=== PATIENT | female | born 1960 | race Caucasian/White ===

== ENCOUNTER 2024-08-15 15:36 | Emergency (ER) | payer MEDICARE, SELFPAY ==
[2024-08-15] VITALS (7 sets, daily range): BP systolic 135–194; BP diastolic 67–104; BMI 28.9
[2024-08-15 16:21] LABS: % Basophils 0.7 % (0-2); % Eosinophils 3.5 % (0-6); % Immature Granulocytes 0.2 % (0-0.5); % Lymphocytes 19.7 % (20.5-51.1); % Monocytes 9.8 % (1.7-9.3); % Neutrophils 66.1 % (42.2-75.2); Absolute Eosinophils 0.2 10^3/uL (0-0.7); Absolute Lymphocytes 0.8 10^3/uL (1.2-3.4); Absolute Monocytes 0.4 10^3/uL (0.1-0.6); Absolute Neutrophils 2.8 10^3/uL (1.4-6.5); Hematocrit 31.9 % (37.0-47.0); Hemoglobin 10.5 g/dL (12.0-16.0); Mean Corp Hgb Conc. 32.9 g/dL (33.0-37.0); Mean Corpuscular Hgb 30.7 pg (27.0-31.0); Mean Corpuscular Volume 93.3 fL (81.0-99.0); Mean Platelet Volume 10.3 fL (7.4-10.4); Nucleated Red Blood Cells % 0 %; Platelet Count 241 10^3/uL (130-400); Red Blood Cell Count 3.42 10^6/uL (4.20-5.40); Red Cell Dist. Width 14.5 % (11.5-14.5); White Blood Cell Count 4.3 10^3/uL (4.8-10.8)
[2024-08-15] MEDS: LOW STRENGTH ASPIRIN 324 MG PO (16:36)
[2024-08-15 16:39] LABS: ALT (SGPT) 22 U/L (0-35); AST (SGOT) 31 U/L (14-36); Albumin 3.9 g/dl (3.5-5.0); Alkaline Phosphatase 89 U/L (38-126); Blood Urea Nitrogen 10 mg/dl (7-17); Calcium 9.4 mg/dl (8.4-10.2); Carbon Dioxide 31 mmol/L (22-30); Chloride 103 mmol/L (98-107); Estimated Creatinine Clearance 76 ml/min; Glucose 108 mg/dl (70-99); Potassium 4.2 mmol/L (3.5-5.1); Sodium 142 mmol/L (135-145); Total Bilirubin 0.6 mg/dl (0.2-1.3); Total Protein 6.4 g/dl (6.3-8.2); eGFR > 60.00
--- NOTE | 2024-08-15 16:40 | ED.GENMED ---
History of Present Illness
<Uli Noel PA-C - Last Filed: 08/16/24 13:06>
General
Chief Complaint: Chest Pain
Time Seen by Provider: 08/15/24 15:56
History of Present Illness
History of Present Illness:
64-year-old female with history of hypertension and hyperlipidemia presents to the emergency department for evaluation of left-sided chest discomfort that began at approximately 11 AM today. Symptoms seem to be worsening since onset. She also
notes development of 'throat discomfort' beginning after the chest pain, no dysphagia/odynophagia. No fevers or chills. The pain does not radiate and there is no pleuritic nature to it. She has experienced similar pain in the past however no
throat discomfort in association. Does note a persistent upper respiratory infection/cough approximately 1 month ago that has resolved for at least the past week to 2 weeks. Not on any exogenous hormones. Denies any calf cramping but does feel as
though both of her ankles are swollen recently. No shortness of breath, nausea, or vomiting.
Past History
<Uli Noel PA-C - Last Filed: 08/16/24 13:06>
Past History
ED Past Medical History: HTN and NIDDM
ED Past Surgical History: Orthopedic (Spinal fusion)
Social History
Tobacco: Non-smoker
Alcohol: None
Review of Systems
<Uli Noel PA-C - Last Filed: 08/16/24 13:06>
Review of Systems
Allergies reviewed?: Yes
All Other Systems: ROS reviewed and negative except as documented in HPI and ROS
Phy Exam
<Uli Noel PA-C - Last Filed: 08/16/24 13:06>
Physical Exam
Physical Exam:
GEN: Well appearing, NAD, WDWN
Eyes: PERRLA, EOMs intact, no scleral icterus
HENT: NCAT, oral mucosa moist
Lungs: CTAB, no wheezes, rales, rhonchi, normal chest wall excursion
Cardiac: RRR, no M/R/G, no peripheral edema. Radial pulses 2+ bilat
Neuro: AO x 3
MSK: No gross deformity or ecchymosis. No edema. No digital clubbing
Skin: No rashes, petechiae. Normal color, no pallor or jaundice.
Psych: Calm, cooperative, proper hygiene
Scores
<Uli Noel PA-C - Last Filed: 08/16/24 13:06>
Heart Score for Chest Pain Patients
Heart Score for Chest Pain Patients: 4
Heart Score Risk: 20.3% MACE over next 6 weeks
<Robby Cassidy Jr., PA-C - Last Filed: 08/15/24 20:00>
Heart Score for Chest Pain Patients
STEMI patient?: No
History: Moderately Suspicious
ECG: Normal
Age: >/= 65 years
Risk Factors: 1 or 2 Risk Factors
Troponin: </= Normal Limit
Heart Score for Chest Pain Patients: 4
Heart Score Risk: 20.3% MACE over next 6 weeks
Course
<Uli Noel PA-C - Last Filed: 08/16/24 13:06>
Orders/Labs/Results
Orders:
Orders
08/15/24 15:36
ECG [Electrocardiogram (*1)] Urgent
Reason for Study: Chest Pain
EKG- Treatment ONCE
08/15/24 16:05
CR Chest - 2 Views Urgent
Comment:
Reason For Exam: L chest pain
08/15/24 16:09
Complete Blood Count/With Diff Urgent
Comprehensive Metabolic Panel Urgent
NT-proBNP Urgent
Troponin I Urgent
08/15/24 16:34
Aspirin Chewable [Low Strength Aspirin] 324 mg PO NOW STA
08/15/24 16:55
Mag Hydrox/Al Hydrox/Simeth [Maalox] 30 ml Phenobarb/Hyoscy/Atropine/Scop [] 10 ml Viscous Lidocaine 2% [Xylocaine Viscous Cup] 10 ml PO NOW
08/15/24 17:00
Mag Hydrox/Al Hydrox/Simeth [Maalox] 30 ml .ROUTE .STK-MED ONE
Phenobarb/Hyoscy/Atropine/Scop [] 10 ml .ROUTE .STK-MED ONE
Viscous Lidocaine 2% [Xylocaine Viscous Cup] 15 ml .ROUTE .STK-MED ONE
08/15/24 17:53
Morphine Sulfate 4 mg IV NOW STA
08/15/24 19:00
EKG [Electrocardiogram (*1)] Routine
Reason for Study: Chest Pain
EKG- Treatment ONCE
08/15/24 19:01
Troponin I Routine
Abnormal Lab Results
08/15/24
16:09
WBC 4.3 L 10^3/uL
(4.8-10.8)
RBC 3.42 L 10^6/uL
(4.20-5.40)
Hgb 10.5 L g/dL
(12.0-16.0)
Hct 31.9 L %
(37.0-47.0)
MCHC 32.9 L g/dL
(33.0-37.0)
Absolute Lymphs (auto) 0.8 L 10^3/uL
(1.2-3.4)
Lymphocytes % 19.7 L %
(20.5-51.1)
Monocytes % 9.8 H %
(1.7-9.3)
Carbon Dioxide 31 H mmol/L
(22-30)
Glucose 108 H mg/dl
(70-99)
08/15/24 16:09
08/15/24 16:09
Vital Signs
Initial and Last Documented VS:
Initial Vital Signs
Temp Pulse Resp BP Pulse Ox
98.4 F 102 18 194/104 98
08/15/24 15:42 08/15/24 15:42 08/15/24 15:42 08/15/24 15:42 08/15/24 15:42
Last Documented Vital Signs
Temp Pulse Resp BP Pulse Ox
98.4 F 81 8 155/87 95
08/15/24 15:42 08/15/24 20:11 08/15/24 19:15 08/15/24 20:11 08/15/24 19:15
<Robby Cassidy Jr., PA-C - Last Filed: 08/15/24 20:00>
Orders/Labs/Results
Orders:
Orders
08/15/24 15:36
ECG [Electrocardiogram (*1)] Urgent
Reason for Study: Chest Pain
EKG- Treatment ONCE
08/15/24 16:05
CR Chest - 2 Views Urgent
Comment:
Reason For Exam: L chest pain
08/15/24 16:09
Complete Blood Count/With Diff Urgent
Comprehensive Metabolic Panel Urgent
NT-proBNP Urgent
Troponin I Urgent
08/15/24 16:34
Aspirin Chewable [Low Strength Aspirin] 324 mg PO NOW STA
08/15/24 16:55
Mag Hydrox/Al Hydrox/Simeth [Maalox] 30 ml Phenobarb/Hyoscy/Atropine/Scop [] 10 ml Viscous Lidocaine 2% [Xylocaine Viscous Cup] 10 ml PO NOW
08/15/24 17:00
Mag Hydrox/Al Hydrox/Simeth [Maalox] 30 ml .ROUTE .STK-MED ONE
Phenobarb/Hyoscy/Atropine/Scop [] 10 ml .ROUTE .STK-MED ONE
Viscous Lidocaine 2% [Xylocaine Viscous Cup] 15 ml .ROUTE .STK-MED ONE
08/15/24 17:53
Morphine Sulfate 4 mg IV NOW STA
08/15/24 19:00
EKG [Electrocardiogram (*1)] Routine
Reason for Study: Chest Pain
EKG- Treatment ONCE
08/15/24 19:01
Troponin I Routine
Abnormal Lab Results
08/15/24
16:09
WBC 4.3 L 10^3/uL
(4.8-10.8)
RBC 3.42 L 10^6/uL
(4.20-5.40)
Hgb 10.5 L g/dL
(12.0-16.0)
Hct 31.9 L %
(37.0-47.0)
MCHC 32.9 L g/dL
(33.0-37.0)
Absolute Lymphs (auto) 0.8 L 10^3/uL
(1.2-3.4)
Lymphocytes % 19.7 L %
(20.5-51.1)
Monocytes % 9.8 H %
(1.7-9.3)
Carbon Dioxide 31 H mmol/L
(22-30)
Glucose 108 H mg/dl
(70-99)
08/15/24 16:09
08/15/24 16:09
Vital Signs
Initial and Last Documented VS:
Initial Vital Signs
Temp Pulse Resp BP Pulse Ox
98.4 F 102 18 194/104 98
08/15/24 15:42 08/15/24 15:42 08/15/24 15:42 08/15/24 15:42 08/15/24 15:42
Last Documented Vital Signs
Temp Pulse Resp BP Pulse Ox
98.4 F 81 8 155/87 95
08/15/24 15:42 08/15/24 20:11 08/15/24 19:15 08/15/24 20:11 08/15/24 19:15
<Uli Noel PA-C - Last Filed: 08/16/24 13:06>
Comment
Comment:
EKG independently interpreted by me shows normal sinus rhythm at a rate of [address] changes concerning for ischemia
<Robby Cassidy Jr., PA-C - Last Filed: 08/15/24 20:00>
*Critical Care Note
Total Time (30-74mins, 75-104mins- exclusive of procedures): Not Applicable
<Robby Cassidy Jr., PA-C - Last Filed: 08/15/24 20:00>
Update Note
Update Note:
194, Gilberto Cassidy PA-C. Second troponin negative EKG unchanged. Patient appears well at reassessment. Stable for close outpatient follow-up. Return precautions given.
ED Attending Note
<Uli Noel PA-C - Last Filed: 08/16/24 13:06>
-
Portions of this chart may have been created with voice recognition software.� Occasional wrong word or��sound alike� substitutions may have occurred due to the inherent limitations of voice recognition software.
Discharge Plan
Departure
Patient Disposition: Home (Routine Discharge)
Date of Disposition: 08/15/24
Time of Disposition: 20:00
Patient with high blood pressure during this ER visit?: No
Condition: Good
Covid-19: Not Applicable
Discharge Problem:
Chest pain
Instructions: Chest Pain DCA Follow Up
Prescriptions:
No Action
amlodipine 5 MG tablet
5 mg PO DAILY Qty: 14 0RF
ondansetron 4 MG tablet,disintegrating
4 mg PO TIDPRN PRN (Reason: nausea/vomiting) Qty: 14 0RF
Referrals:
Kalen Moeller, DO [Family Provider] -
Activity Restrictions/Additional Instructions:
You came to the emergency department today with concerns of chest discomfort. Here you have a reassuring assessment. Please follow closely with cardiology. Return to the emergency department for any worsening, new or concerning symptoms.
Interventions
Interventions:
*Risk Screen - Suicide Last Done: 08/15/24 15:42
*General Assessment Last Done: 08/15/24 15:42
*Neglect/Abuse Screening Last Done: 08/15/24 16:17
ED- Fall Risk Assessment Last Done: 08/15/24 16:17
*ED COVID-19 Vaccine History Last Done: 08/15/24 15:42
*Nursing Disposition Last Done: 08/15/24 20:11
ED- Cardiac Assessment Last Done: 08/15/24 16:17
Discharge Date and Time
Discharge Date/Time: 08/15/24 20:15
Print Language: CHILEAN
[2024-08-15 16:49] LABS: NT-proBNP 281 pg/ml; Troponin I < 0.012 ng/ml
[2024-08-15] MEDS: MAALOX 50 PO (17:01)
[2024-08-15] MEDS: MORPHINE SULFATE 4 MG IV (18:04)
[2024-08-15 19:32] LABS: Troponin I < 0.012 ng/ml
== END 2024-08-15 20:15 | disposition home or self-care (01) ==
LOC: EMR 15:36
PROVIDERS: Physician Assistant; EMERGENCY PHYSICIAN Emergency Medicine; FAMILY PHYSICIAN Internal Medicine
DX: R07.89 Other chest pain (principal); R09.89 Other specified symptoms and signs involving the circulatory and respiratory systems; I10 Essential (primary) hypertension; E11.9 Type 2 diabetes mellitus without complications; E78.5 Hyperlipidemia, unspecified; Z98.1 Arthrodesis status; Z88.0 Allergy status to penicillin; Z88.7 Allergy status to serum and vaccine; Z88.8 Allergy status to other drugs, medicaments and biological substances
CPT/HCPCS: 99285; 96374; 71046; 80053; 83880; 84484; 85025; 93005

== ENCOUNTER → 2024-08-27 08:30 | Outpatient (REF) | payer MEDICARE, SELFPAY | LOC: DHCBC/DCA 08:30 | PROVIDERS: ATTENDING PHYSICIAN Nuclear Medicine Nuclear Cardiology; FAMILY PHYSICIAN Internal Medicine | DX: I10 Essential (primary) hypertension (principal); R07.9 Chest pain, unspecified; Z82.49 Family history of ischemic heart disease and other diseases of the circulatory system; Z87.891 Personal history of nicotine dependence; E78.5 Hyperlipidemia, unspecified | CPT/HCPCS: 78452; 93017; A9500; J2785 ==

== ENCOUNTER → 2024-09-03 16:08 | Outpatient (REF) | payer MEDICARE, SELFPAY | LOC: HWRCS 16:08 | PROVIDERS: ATTENDING PHYSICIAN Nuclear Medicine Nuclear Cardiology; FAMILY PHYSICIAN Internal Medicine | DX: I10 Essential (primary) hypertension (principal); R07.9 Chest pain, unspecified; Z82.49 Family history of ischemic heart disease and other diseases of the circulatory system; Z87.891 Personal history of nicotine dependence; E78.5 Hyperlipidemia, unspecified | CPT/HCPCS: 93306 ==